=== PATIENT | female | born 1985 | race African-American/Black ===

== ENCOUNTER 2017-09-03 13:48 | Emergency (ER) | payer OTHER, MEDICAID ==
[~2017-09-03] VITALS: Ht 170.2 cm; Wt 85.0 kg
[~2017-09-03 13:48] MED LIST: HYDR-3533 PO; VITA10002 PO
[2017-09-03 13:54] VITALS: BP 116/57; PULSE 69; RESP 18; TEMP 98.7; O2SAT 99
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
[2017-09-03] MEDS ORDERED: BACL10TA PO (16:16)
[2017-09-03] MEDS ORDERED: IBUP1TAB7 PO (16:16)
== END 2017-09-03 16:27 | disposition home or self-care (01) ==
LOC: NEPK 13:48
DX: S29.012A Strain of muscle and tendon of back wall of thorax, initial encounter (principal); S39.012A Strain of muscle, fascia and tendon of lower back, initial encounter; V43.52XA Car driver injured in collision with other type car in traffic accident, initial encounter
CPT/HCPCS: 72072; 72100; 99283